=== PATIENT | female | born 1950 | race Caucasian/White ===

== ENCOUNTER → 2017-11-09 | Outpatient (CLI) | payer OTHER | LOC: BRMIMAGING 15:27 | PROVIDERS: ATTEND Urology | DX: Z12.31 Encounter for screening mammogram for malignant neoplasm of breast (principal) | CPT/HCPCS: G0202 ==

== ENCOUNTER → 2018-12-26 | Outpatient (CLI) | payer OTHER | LOC: BRMIMAGING 07:48 | DX: K76.0 Fatty (change of) liver, not elsewhere classified (principal); N28.89 Other specified disorders of kidney and ureter; Z90.710 Acquired absence of both cervix and uterus | CPT/HCPCS: 76700-PO ==

== ENCOUNTER → 2019-01-08 | Outpatient (CLI) | payer OTHER | LOC: BRMIMAGING 08:49 | DX: R92.8 Other abnormal and inconclusive findings on diagnostic imaging of breast (principal) ==

== ENCOUNTER → 2019-01-22 | Outpatient (CLI) | payer OTHER ==
[~2019-01-22] MED LIST: IOPAMIDOL (ISOVUE-300) 100 ML BTL ONE
== END ==
LOC: CIMAGING 11:15
DX: N13.30 Unspecified hydronephrosis (principal); E83.59 Other disorders of calcium metabolism; N29 Other disorders of kidney and ureter in diseases classified elsewhere; N26.1 Atrophy of kidney (terminal); N32.89 Other specified disorders of bladder
CPT/HCPCS: 74176-PO; 82565-PO; Q9967